=== PATIENT | male | born 1940 | race Caucasian/White ===

== ENCOUNTER 2019-05-11 10:50 | Outpatient (CLI) | payer MEDICARE, BC | END 2019-05-11 23:59 | disposition home or self-care (01) | LOC: STAR 10:50 | PROVIDERS: ATTEND Urology | DX: Z01.818 Encounter for other preprocedural examination (principal); N40.1 Benign prostatic hyperplasia with lower urinary tract symptoms; I45.10 Unspecified right bundle-branch block | CPT/HCPCS: 36415; 80053; 81001; 87086; 93005 ==